=== PATIENT | female | born 1965 | race Hispanic/Latino ===

== ENCOUNTER 2017-03-27 12:04 | Emergency (ER) | payer SELFPAY ==
[2017-03-27] MEDS ORDERED: Acetaminophen 500 MG TAB ONE (12:38)
[2017-03-27 12:45] LABS: #Eosinphils 0.1 thou/uL (0.0-0.7); #Monocytes 0.8 thou/uL (0.11-0.59); #Neutrophils 6.3 thou/uL (1.40-6.50); %Basophils 0.5 % (0.0-1.0); %Eosinophils 1.7 % (0.0-10.0); %Lymphocytes 12.4 % (21.0-51.0); %Monocytes 9.4 % (0.0-10.0); Hematocrit 45.6 % (36.0-47.0); Mean Platelet Volume 7.2 fL (7.4-10.4); Red Blood Cell (RBC) Count 4.84 mill/uL (4.20-5.40); White Blood Cell (WBC) Count 8.3 thou/uL (4.8-10.8)
[2017-03-27 12:57] LABS: Bilirubin Negative (Negative); Blood, Urine Large (Negative); Glucose, Urine (Dipstick) Negative (Negative); Ketone, Urine Negative (Negative); Nitrite Negative (Negative); Protein, Urine (Dipstick) 30 mg/dL (Neg-Trace)
[2017-03-27 13:01] LABS: Bacteria/HPF None Seen HPF (None Seen); Hyaline Casts/LPF 0-3 HYALINE CAST LPF (0-3 Hyaline); Squamous Epithelial 0-3 HPF (0-3); WBC/HPF 0-3 HPF (0-3)
[2017-03-27 13:02] LABS: Lactic Acid - Sepsis 1.7 mmol/L (0.5-2.2)
[2017-03-27 13:06] LABS: ALT (SGPT) 89 U/L (8-55); AST (SGOT) 118 U/L (5-34); Alkaline Phosphatase 81 U/L (40-150); Anion Gap 11 mmol/L (10-20); BUN (Urea Nitrogen) 8 mg/dL (7.0-18.7); CK (CPK) 217 U/L (29-168); Calc. Creatinine Clearance 0 mL/min (70-130); Calcium 9.6 mg/dL (7.8-10.44); Carbon Dioxide 27 mmol/L (22-29); Chloride 99 mmol/L (98-107); Estimated GFR-MDRD 73; Globulin 4.2 g/dL (2.4-3.5); Protein, Total 8.8 g/dL (6.0-8.3)
[2017-03-27 13:09] LABS: RBC/HPF None Seen HPF (0-3)
--- NOTE | 2017-03-27 13:10 | RAD ---
AP CHEST: Indication: History of bronchitis without improvement. Patient is having chest pain and headache with possible fever. Comparison: None. FINDINGS: No confluent airspace opacity or pleural effusion is evident. Heart size is upper limits of normal. P ulmonary vasculature is within normal limits. No acute osseous abnormality. IMPRESSION: No definite acute cardiopulmonary abnormality. POS: [facility]
[2017-03-27 13:11] LABS: Troponin I Less than 0.010 ng/mL (< 0.028)
[2017-03-27] MEDS ORDERED: Ondansetron HCl/PF 4 MG/2 ML Vial ONE (13:14)
[2017-03-27] MEDS ORDERED: Ketorolac Tromethamine 30 MG/ML VIAL ONE (13:14)
--- NOTE | 2017-03-27 13:56 | RAD ---
CHEST PA AND LATERAL: History: 51-year-old female with bronchitis, chest pain, headache and possible fever. Comparison: 03-27-17 FINDINGS: Heart size is normal. The lungs are clear. No pneumonia, edema, or pleural effusion. IMPRESSION: No acute intrathoracic disease. Stable from prior study. POS: [facility]
--- NOTE | 2017-04-13 13:13 | EKG ---
Test Reason : Blood Pressure : / mmHG Vent. Rate : 127 BPM Atrial Rate : 127 BPM P-R Int : 168 ms QRS Dur : 096 ms QT Int : 300 ms P-R-T Axes : 034 007 069 degrees QTc Int : 436 ms Sinus tachycardia Possible Left atrial enlargement Incomplete right bundle branch block Borderline ECG Confirmed by KEITH CERVANTES ([id number]), visual effects editor JD FLORES ([id number]) on 04/13/2017 1:12:45 PM Referred By: Confirmed By:KEITH CERVANTES
== END 2017-03-27 14:30 | disposition home or self-care (01) ==
LOC: ERS 12:04
DX: J11.1 Influenza due to unidentified influenza virus with other respiratory manifestations (principal)
CPT/HCPCS: 36415; 71010; 71020; 80053; 81003; 81015; 82553; 83605; 84484; 85025; 87040; 87086; 93005; 96361; 96374; 96375; J1885; J2405

== ENCOUNTER 2017-04-19 12:25 | Emergency (ER) | payer SELFPAY ==
[2017-04-19] MEDS ORDERED: Ondansetron ODT 4 MG TAB ONE (13:07)
[2017-04-19] MEDS ORDERED: Ibuprofen 200 MG TAB ONE (13:56)
--- NOTE | 2017-04-19 14:10 | RAD ---
CHEST TWO VIEW: History: Flu-like symptoms. Comparison: 03-27-17 FINDINGS: Lungs are clear. No pneumothorax or effusion. Cardiac silhouette and mediastinal contours are within normal limits. IMPRESSION: No acute intrathoracic abnormality. POS: [facility]
[2017-04-19] MEDS ORDERED: Ketorolac Tromethamine 30 MG/ML VIAL ONE (14:11)
[2017-04-19 14:30] LABS: #Eosinphils 0.1 thou/uL (0.0-0.7); #Lymphocytes 0.7 thou/uL (1.20-3.40); #Neutrophils 5.7 thou/uL (1.40-6.50); %Eosinophils 0.9 % (0.0-10.0); %Lymphocytes 9.3 % (21.0-51.0); %Neutrophils 76.9 % (42.0-75.0); Hemoglobin 14.2 g/dL (12.0-16.0); Mean Corpuscular HGB CONC 34.7 g/dL (32.0-36.0); Mean Corpuscular Hemoglobin 32.8 pg (27.0-31.0); Mean Corpuscular Volume 94.5 fl (81.0-99.0); Mean Platelet Volume 7.8 fL (7.4-10.4); Platelet Count 208 thou/uL (130-400); RBC Distribution Width 10.9 % (11.5-14.5); Red Blood Cell (RBC) Count 4.34 mill/uL (4.20-5.40); White Blood Cell (WBC) Count 7.4 thou/uL (4.8-10.8)
[2017-04-19 14:55] LABS: ALT (SGPT) 108 U/L (8-55); AST (SGOT) 116 U/L (5-34); Albumin 4.6 g/dL (3.5-5.0); Alkaline Phosphatase 71 U/L (40-150); Anion Gap 14 mmol/L (10-20); BUN (Urea Nitrogen) 10 mg/dL (7.0-18.7); Bilirubin, Total 0.9 mg/dL (0.2-1.2); Calc. Creatinine Clearance 0 mL/min (70-130); Calcium 9.7 mg/dL (7.8-10.44); Carbon Dioxide 25 mmol/L (22-29); Chloride 99 mmol/L (98-107); Estimated GFR-MDRD 69; Glucose 119 mg/dL (70-105); Potassium 3.3 mmol/L (3.5-5.1); Protein, Total 8.6 g/dL (6.0-8.3); Sodium 135 mmol/L (136-145)
[2017-04-19] MEDS ORDERED: Promethazine HCl 25 MG/ML VIAL ONE (15:12)
[2017-04-19] MEDS ORDERED: Morphine 2 mg/2ml in 0.9% NaCl PF SYRINGE ONE (15:45)
== END 2017-04-19 16:56 | disposition home or self-care (01) ==
LOC: ERS 12:25
DX: J10.1 Influenza due to other identified influenza virus with other respiratory manifestations (principal); I10 Essential (primary) hypertension
CPT/HCPCS: 71046; 80053; 85025; 87804; 96361; 96365; 96375; J1885; J2270; J2550; Q0162

== ENCOUNTER 2020-09-08 14:58 | Observation (INO) | payer SELFPAY ==
[2020-09-08] MEDS ORDERED: Aspirin Chewable 81 MG TAB ONE (15:28)
[2020-09-08] MEDS ORDERED: Nitroglycerin 2% Ointment 1 INCH/1 GM Packet ONE (15:28)
[2020-09-08 15:49] LABS: #Eosinphils 0.1 thou/uL (0.0-0.7); #Lymphocytes 0.8 thou/uL (1.20-3.40); #Monocytes 0.4 thou/uL (0.11-0.59); %Basophils 0.5 % (0.0-1.0); %Eosinophils 0.7 % (0.0-10.0); %Lymphocytes 9.7 % (21.0-51.0); %Monocytes 4.3 % (0.0-10.0); %Neutrophils 84.8 % (42.0-75.0); Hemoglobin 15.3 g/dL (12.0-16.0); Mean Corpuscular HGB CONC 34.8 g/dL (32.0-36.0); Mean Corpuscular Volume 91.9 fL (78.0-98.0); Mean Platelet Volume 8.6 fL (7.4-10.4); Platelet Count 162 thou/uL (130-400); RBC Distribution Width 10.9 % (11.5-14.5); Red Blood Cell (RBC) Count 4.78 mill/uL (4.20-5.40); White Blood Cell (WBC) Count 8.2 thou/uL (4.8-10.8)
[2020-09-08 16:07] LABS: ALT (SGPT) 90 U/L (8-55); AST (SGOT) 88 U/L (5-34); Albumin 4.2 g/dL (3.5-5.0); Alkaline Phosphatase 109 U/L (40-110); Anion Gap 17 mmol/L (10-20); BUN (Urea Nitrogen) 9 mg/dL (9.8-20.1); Calc. Creatinine Clearance 0 mL/min (70-130); Carbon Dioxide 19 mmol/L (22-29); Chloride 104 mmol/L (98-107); Globulin 3.4 g/dL (2.4-3.5); Glucose 139 mg/dL (70-105); Potassium 3.5 mmol/L (3.5-5.1); Protein, Total 7.6 g/dL (6.0-8.3); Sodium 136 mmol/L (136-145)
[2020-09-08] MEDS ORDERED: Acetaminophen 500 MG TAB ONE (17:20)
[2020-09-08] MEDS ORDERED: Lidocaine Viscous Sol 2% 15 ml UD Cup ONE (18:32)
[2020-09-08] MEDS ORDERED: Mag-Al 1200 mg/1200 mg/30 ML UDCUP ONE (18:33)
[2020-09-08 18:56] LABS: Troponin I 0.037 ng/mL (< 0.028)
[2020-09-08] MEDS ORDERED: Nitroglycerin 0.4 MG TAB (25 Tab Bottle) SL PRN (20:16)
[2020-09-08] MEDS ORDERED: Ondansetron PF 4 MG/2 ML Vial IVP PRN (20:16)
[2020-09-08] MEDS ORDERED: Ondansetron ODT 4 MG TAB PO PRN (20:16)
[2020-09-08] MEDS ORDERED: hydrALAZINE 20 MG/ML VIAL SLOW IVP PRN (20:21)
[2020-09-08 21:03] LABS: Hemoglobin A1c 6.1 % (4.0-6.0)
[2020-09-08 23:30] LABS: Troponin I 0.052 ng/mL (< 0.028)
[2020-09-09 01:02] VITALS: BMI 36.2
[2020-09-09] MEDS: Acetaminophen 325 MG TAB PO PRN ×2 (05:11→09:02)
[2020-09-09 05:27] LABS: #Eosinphils 0.1 thou/uL (0.0-0.7); #Lymphocytes 1.1 thou/uL (1.20-3.40); #Monocytes 0.6 thou/uL (0.11-0.59); %Basophils 0.1 % (0.0-1.0); %Lymphocytes 14.1 % (21.0-51.0); %Monocytes 8.1 % (0.0-10.0); %Neutrophils 76.7 % (42.0-75.0); Hemoglobin 14.5 g/dL (12.0-16.0); Mean Corpuscular HGB CONC 35.1 g/dL (32.0-36.0); Mean Corpuscular Hemoglobin 32.9 pg (27.0-31.0); Mean Corpuscular Volume 93.6 fL (78.0-98.0); Mean Platelet Volume 8.7 fL (7.4-10.4); Platelet Count 163 thou/uL (130-400); RBC Distribution Width 11.1 % (11.5-14.5); White Blood Cell (WBC) Count 7.8 thou/uL (4.8-10.8)
[2020-09-09 05:57] LABS: ALT (SGPT) 81 U/L (8-55); AST (SGOT) 71 U/L (5-34); Alkaline Phosphatase 88 U/L (40-110); Anion Gap 12 mmol/L (10-20); BUN (Urea Nitrogen) 11 mg/dL (9.8-20.1); Bilirubin, Total 1.1 mg/dL (0.2-1.2); Calc. Creatinine Clearance 121 mL/min (70-130); Calcium 8.9 mg/dL (7.8-10.44); Carbon Dioxide 24 mmol/L (22-29); Cardiac Risk 2.8 (Less than 4.5); Chloride 101 mmol/L (98-107); Cholesterol 179 mg/dl (< 200 Desired); Globulin 3.4 g/dL (2.4-3.5); Glucose 117 mg/dL (70-105); HDL Cholesterol 65 mg/dL (>60 Neg Risk); LDL Cholesterol, Calculated 97 mg/dL; Potassium 3.4 mmol/L (3.5-5.1); Protein, Total 7.4 g/dL (6.0-8.3); Sodium 134 mmol/L (136-145); Triglycerides 83 mg/dL (Less than 150)
[2020-09-09] MEDS ORDERED: Potassium Chloride 20 MEQ TAB PO SCH (09:00)
[2020-09-09] MEDS ORDERED: Enoxaparin Sodium 40 MG/0.4 ML SYRINGE SC SCH (09:00)
[2020-09-09] MEDS ORDERED: Amlodipine 5 MG TAB PO SCH (09:00)
[2020-09-09] MEDS ORDERED: Aspirin Chewable 81 MG TAB PO SCH (09:00)
[2020-09-09] MEDS ORDERED: Regadenoson 0.4 MG/5 ML SYRINGE ONE (09:55)
[2020-09-09 11:04] VITALS: BP 182/91; TEMP 98.9
[2020-09-09] MEDS ORDERED: Metoclopramide HCl 10 MG/2 ML VIAL IVP SCH (11:15)
[2020-09-09] MEDS: Magnesium 2 GM/50 ML 2 GM in Premix Bag 1 BAG IVPB SCH ×2 (12:07→13:04)
[2020-09-09] MEDS ORDERED: Naproxen 500 MG TAB PO SCH (12:15)
== END 2020-09-09 14:10 | disposition home or self-care (01) ==
LOC: ERS 14:58 → 2SW 17:50
PROVIDERS: ADMIT Student in an Organized Health Care Education/Training Program; ATTEND Student in an Organized Health Care Education/Training Program
DX: R07.89 Other chest pain (principal); I10 Essential (primary) hypertension; R74.01 Elevation of levels of liver transaminase levels; Z86.16 Personal history of COVID-19; Z87.891 Personal history of nicotine dependence
CPT/HCPCS: 36415; 71045; 78452; 80053; 80061; 83036; 84443; 84484; 85025; 93005; 93017; 96372; 96374; A9500; G0378; J1650; J2765; J2785; J3475